=== PATIENT | female | born 1965 | race Caucasian/White ===

== ENCOUNTER → 2018-04-11 | Outpatient (CLI) | payer BC | LOC: MC.RAD 07:50 | DX: Z12.31 Encounter for screening mammogram for malignant neoplasm of breast (principal); N63.21 Unspecified lump in the left breast, upper outer quadrant ==

== ENCOUNTER → 2018-04-17 | Outpatient (CLI) | payer BC | LOC: MC.RAD 11:08 | DX: N60.02 Solitary cyst of left breast (principal) ==

== ENCOUNTER → 2018-04-25 | Outpatient (CLI) | payer BC | LOC: MC.RAD 10:12 | DX: N60.02 Solitary cyst of left breast (principal) ==

== ENCOUNTER → 2018-09-15 | Outpatient (CLI) | payer OTHER | LOC: COL.RAD 12:17 | DX: G43.109 Migraine with aura, not intractable, without status migrainosus (principal); R53.1 Weakness | CPT/HCPCS: A9585 ==

== ENCOUNTER → 2020-01-25 | Outpatient (CLI) | payer OTHER | LOC: COL.RAD 10:21 | DX: M51.36 Other intervertebral disc degeneration, lumbar region (principal); M43.16 Spondylolisthesis, lumbar region; M46.86 Other specified inflammatory spondylopathies, lumbar region; G89.29 Other chronic pain ==